=== PATIENT | female | born 1980 | race Caucasian/White ===

== ENCOUNTER → 2017-03-18 | Outpatient (CLI) | payer MEDICARE, OTHER ==
--- NOTE | 2017-03-18 13:50 | MM ---
Reason for exam: screening (asymptomatic). Baseline mammogram. History: Taking hormonal contraceptives for 5 years. Physical Findings: Nurse did not find any significant physical abnormalities on exam. MG 3D Screening Mammo W/Cad Bilateral CC, MLO, and XCCL view(s) were taken. There are scattered fibroglandular densities. Finding: There are a few typically benign round calcifications in both breasts. There is no discrete abnormality. These results were verbally communicated with the patient and result sheet given to the patient on 03/18/17. ASSESSMENT: Benign, BI-RAD 2 RECOMMENDATION: Routine screening mammogram of both breasts at age 38. Back at age 38.
== END | disposition home or self-care (01) ==
LOC: RADMAMWWP 10:35
PROVIDERS: ATTEND Family Medicine
DX: Z12.31 Encounter for screening mammogram for malignant neoplasm of breast (principal)
CPT/HCPCS: 77063; G0202

== ENCOUNTER → 2017-07-12 | Outpatient (CLI) | payer MEDICARE, OTHER ==
--- NOTE | 2017-07-12 12:25 | WWHP ---
[facility] - HISTORY AND PHYSICAL DATE OF SERVICE: 07/12/2017 CHIEF COMPLAINT: The patient is here for her routine gynecologic exam. HPI: This is a 37-year-old G0 with an LMP of approximately 2011. The patient has a long history of hypermenorrhea and states her periods could last as much as 3 to 4 weeks. Her periods have always been very long, since she started having periods. She also has a history of significant mood swings with her periods. Starting about 6 years ago the patient was started on Depo-Provera because of the bad menstrual cycles and menstrual periods. The patient has been amenorrheic since being on the Depo-Provera. She also states her mood swings are much improved. Her last pelvic exam was about 2 years ago. She is without gynecologic complaints. PAST MEDICAL HISTORY: Type 2 diabetes requiring insulin, chronic hypertension, elevated cholesterol, gastroesophageal reflux disease and history of peptic ulcer disease in the past. PAST MEDICATIONS: 1. Depo-Provera 150 mg IM q.3 months. 2. Simvastatin 20 mg daily. 3. Metformin 1000 mg b.i.d. 4. Lisinopril with hydrochlorothiazide 04/21.5 one daily. 5. Januvia 100 mg daily. 6. Omeprazole 20 mg daily. 7. NovoLog 13 units t.i.d. with meals. 8. Lantus 60 units b.i.d. 9. Vitamin D3 five thousand units daily. 10.Vitamin B12 one thousand mg daily. ALLERGIES: ASPIRIN which caused worsening of her ulcer. PAST SURGICAL HISTORY: [place] teeth removed in the past. The patient also had a colonoscopy many years ago. PAST DEVELOPMENT ADMINISTRATOR HISTORY: Menarche was at age 7. The patient has a long history of hypermenorrhea with menses lasting up to 3 to 4 weeks and this resolved with Depo-Provera, which caused her to be amenorrheic and she has been using this since about 2011. She has no history of STDs. SOCIAL HISTORY: She quit smoking in 2014 and denies alcohol and drug use. She is considered disabled. She is single and is not seeing anybody at this time. FAMILY HISTORY: Maternal great aunt had ovarian cancer. Grandfather had heart disease and father had osteoporosis. REVIEW OF SYSTEMS: She states her weight can fluctuate by 15 to 20 pounds. She denies respiratory, cardiac or GI problems. PHYSICAL EXAM: Blood pressure 138/93, height 5 feet 2 inches, weight 294 pounds, BMI 54. Temperature 96.3, pulse 99. This is a well-developed, obese, white female who is alert and oriented x3, in no acute distress. HEENT is within normal limits. NECK: Supple without mass or thyromegaly. CHEST AND LUNGS: Clear to auscultation. HEART: Regular rate and rhythm. Breasts are without mass or discharge. Axillary exam is negative for adenopathy. Back negative for CVA tenderness. Abdomen is morbidly obese, soft, nontender, without palpable masses. PELVIC EXAM: Normal external genitalia. Cervix and vagina appear normal. There is no evidence of prolapse. The uterus is mid position and not grossly enlarged and is nontender. There are no palpable adnexal masses or tenderness. Bimanual examination is limited secondary to her size. Rectal exam is negative for mass or tenderness. EXTREMITIES: Nontender. IMPRESSION: 1. A 37-year-old female with long history of hypermenorrhea, improved with Depo- Provera use. The patient has been amenorrheic since she was started on Depo- Provera in approximately 2011. 2. Unremarkable gynecologic exam but is probably somewhat limited secondary to her size. 3. Obesity. 4. Multiple medical problems. PLAN: 1. Pap smear was performed. 2. Self breast examination was discussed. 3. Regular mammograms will be started at age 38. 4. We have had a long discussion regarding her Depo-Provera use. We discussed how people can lose bone strength while on Depo-Provera. We have discussed other alternatives including the Mirena IUD, endometrial ablation, hysterectomy, and Nexplanon implants. After reviewing these options, the patient would like to continue on with Depo-Provera, but will let me know if she would like to change to one of the other options. 5. Osteoporosis prevention was discussed. 6. Her prescription for Depo-Provera was called in to [facility]. She will use Depo-Provera at 150 mg IM q.3 months. Her last Depo dose was on 05/05/2017. She states these injections are given by the visiting physician that comes to her home on a regular basis. 7. She will return in 1 year. MMODL / IJN: [id number] /
== END ==
LOC: CANPRECLI → WWCWWP 10:38
PROVIDERS: ATTEND Obstetrics & Gynecology
DX: Z53.9 Procedure and treatment not carried out, unspecified reason (principal)

== ENCOUNTER → 2018-06-27 | Outpatient (CLI) | payer MEDICARE, OTHER ==
[2018-06-27 07:56] VITALS: BP 118/76; PULSE 98; TEMP 98.3; BMI 54.8
--- NOTE | 2018-06-27 08:35 | P.HPOB ---
History of Present Illness H&P Date: 06/27/18 Chief Complaint: The patient is here for her routine gynecologic exam and mammogram. This is a 38-year-old G0 with an LMP of approximately 2011. The patient states she is doing well on Depo-Provera which she has been using for her history of hypermenorrhea. She has been amenorrheic since approximately 2011 and this is when she was started on Depo-Provera. Her menstrual periods used to last up to 3 weeks. She is considered options including the Mirena IUD, Nexplanon, endometrial ablation and hysterectomy. The patient would like to continue on Depo-Provera at this time. She is without gynecologic complaints. Review of Systems The patient has gained 6 pounds over the last year. She denies respiratory, cardiac, or G.I. problems. Past Medical History Past Medical History: Asthma, Diabetes Mellitus (Type II diabetes requiring insulin), GERD/Reflux, Hyperlipidemia, Hypertension Additional Past Medical History / Comment(s): Leukocytosis, peptic ulcer disease in the past, and obesity. 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 Long history of hypermenorrhea improved with Depo-Provera. History of Any Multi-Drug Resistant Organisms: None Reported Additional Past Surgical History / Comment(s): [place] teeth removed. Colonoscopy in her 20s. Past Psychological History: Anxiety, Depression, PTSD Smoking Status: Former smoker (Quit in 2014) Past Alcohol Use History: None Reported Past Drug Use History: None Reported Additional History: She is single and is not seen anybody at this time. She is considered disabled. - Past Family History Mother Family Medical History: No Reported History Additional Family Medical History / Comment(s): Maternal great aunt had either ovarian or uterine cancer. Father Additional Family Medical History / Comment(s): Grandfather had heart disease. Father had osteoporosis. Medications and Allergies Home Medications Medication Instructions Recorded Confirmed Type Insulin Glargine,Hum.rec.anlog 60 unit SQ BID 12/17/14 06/27/18 History [Lantus Solostar] Lisinopril-Hctz 10-12.5 mg 1 tab PO DAILY 12/17/14 06/27/18 History [Zestoretic 10-12.5] Omeprazole [PriLOSEC] 20 mg PO AC-BRKFST 12/17/14 06/27/18 History metFORMIN HCL [Glucophage] 1,000 mg PO BID 12/17/14 06/27/18 History Simvastatin [Zocor] 20 mg PO HS #30 tab 04/20/15 06/27/18 Rx Cholecalciferol [Vitamin D3] 5,000 unit PO DAILY 06/21/17 06/27/18 History Cyanocobalamin (Vitamin B-12) 1,000 mcg PO DAILY 06/21/17 06/27/18 History [Vitamin B-12] Insulin Aspart [NovoLOG Flexpen] 15 units SQ AC-BID 06/21/17 06/27/18 History medroxyPROGESTERone [Depo-Provera] 150 mg IM Q84D 06/21/17 06/27/18 History sitaGLIPtin [Januvia] 100 mg PO DAILY 06/21/17 06/27/18 History Allergies Allergy/AdvReac Type Severity Reaction Status Date / Time cephalexin monohydrate Allergy Rash/Hives Verified 06/27/18 07:37 [From Keflex] aspirin AdvReac PATIENT Verified 06/27/18 07:37 HAS ULCER Exam Vital Signs Temp Pulse BP 06/27/18 07:51 98.3 F 98 118/76 Intake and Output 06/26/18 06/27/18 06/27/18 22:59 06:59 14:59 Other: Weight 136.078 kg Height 5'2", weight 300 pounds, BMI 54.9. This is a well-developed well-nourished obese white female who is alert and oriented times 3 in no acute distress. HEENT: Within normal limits. NECK: Supple without mass or thyromegaly. CHEST AND LUNGS: Clear to auscultation. HEART: Regular rate and rhythm. BREASTS: Are without mass or discharge. AXILLARY EXAM: Negative for adenopathy. BACK: Negative for CVA tenderness. ABDOMEN: Soft, obese, nontender, without palpable masses. PELVIC EXAM: Normal external genitalia. Cervix and vagina appear normal. There is no unusual discharge. There is no evidence of prolapse. The uterus is midposition, nongravid size and nontender. There are no palpable adnexal masses or tenderness. Bimanual examination is somewhat limited secondary to her size. RECTAL EXAM: rectovaginal exam is negative for mass or tenderness and is negative for occult blood. EXTREMITIES: Nontender. IMPRESSION: 1. 38-year-old female with a long history of hypermenorrhea improved with Depo- Provera usage. The patient has been amenorrheic since she started Depo-Provera in approximately 2011. 2. Unremarkable gynecologic exam, but this is somewhat limited secondary to her size. 3. Obesity. 4. Multiple medical problems. PLAN: 1. Pap smear was deferred since she had a normal one less than approximately 12 months ago. 2. Self breast awareness was discussed with the patient. 3. Screening mammogram will be done today. I recommend that she have this done yearly. 4. Osteoporosis prevention was discussed. I have stressed the importance of osteoporosis prevention and she understands that prolonged use of Depo-Provera is known to decreased bone strength with time. For this reason I have recommended that she strongly consider changing her treatment options for her history of hypermenorrhea. 5. We had a long discussion regarding treatment options including the Mirena IUD, Nexplanon implant, endometrial ablation and hysterectomy. We have discussed pros and cons with each of these options. She would like to continue on with Depo-Provera at this time. 6. We have discussed her obesity and weight control problems. I have stressed the importance of good nutrition, regular exercise and we also discussed bariatric surgery options. 7. The electronic prescription for Depo-Provera 150 mg IM to 3 months will be sent to [facility]. The visiting physicians comes to her home on a regular basis will continue to administer the injections as she has done in the past. 8. She will return in one year.
--- NOTE | 2018-06-28 10:53 | MM ---
Reason for exam: screening (asymptomatic). Last mammogram was performed 1 year and 3 months ago. History: Taking hormonal contraceptives for 6 years 3 months. Physical Findings: A clinical breast exam by your physician is recommended on an annual basis and results should be correlated with mammographic findings. MG 3D Screening Mammo W/Cad Bilateral CC, MLO, and XCCL view(s) were taken. Prior study comparison: March 18, 2017, bilateral MG 3d screening mammo w/cad. The breast tissue is almost entirely fat. No significant changes when compared with prior studies. ASSESSMENT: Negative, BI-RAD 1 RECOMMENDATION: Routine screening mammogram of both breasts in 1 year.
== END ==
LOC: WWCWWP 07:08
PROVIDERS: ATTEND Obstetrics & Gynecology
DX: Z12.31 Encounter for screening mammogram for malignant neoplasm of breast (principal)
CPT/HCPCS: 77063; 77067

== ENCOUNTER 2018-10-09 10:57 | Inpatient (IN) | payer MEDICARE, OTHER ==
[2018-10-09 12:28] LABS: Glucose,Whole Blood 145 mg/dL (75-99)
[2018-10-09] MEDS ORDERED: VANCOMYCIN IV PER PHARMACY 1 EACH MISC MISCELLANE PRN (12:29)
[2018-10-09 12:33] VITALS: BMI 51.2
[2018-10-09 13:09] LABS: ALT 23 U/L (9-52); AST 17 U/L (14-36); Albumin 4.6 g/dL (3.5-5.0); Alkaline Phosphatase 53 U/L (38-126); Anion Gap 14 mmol/L; Blood Urea Nitrogen 12 mg/dL (7-17); Calcium 10.4 mg/dL (8.4-10.2); Carbon Dioxide 21 mmol/L (22-30); Chloride 103 mmol/L (98-107); Glucose 139 mg/dL (74-99); Sodium 138 mmol/L (137-145); Total Bilirubin 0.6 mg/dL (0.2-1.3); Total Protein 7.8 g/dL (6.3-8.2)
[2018-10-09] MEDS ORDERED: NEOMYCIN-POLYMYXIN-HC (3.5-10,000-10 MG) OTIC DROPS 10 ML BTL BOTH EARS PRN (13:10)
[2018-10-09] MEDS ORDERED: ACETAMINOPHEN TAB 325 MG TAB PO PRN (13:12)
[2018-10-09] MEDS ORDERED: ONDANSETRON 4 MG/2 ML VIAL IVP PRN (13:12)
[2018-10-09 13:18] LABS: Basophils # (A) 0.1 k/uL (0-0.2); Basophils % (A) 0 %; Eosinophils # (A) 0.3 k/uL (0-0.7); Eosinophils % (A) 2 %; HCT 44.3 % (34.0-46.0); HGB 14.3 gm/dL (11.4-16.0); Lymphocytes # (A) 2.7 k/uL (1.0-4.8); Lymphocytes % (A) 21 %; MCHC 32.3 g/dL (31.0-37.0); MCV 83.4 fL (80.0-100.0); Mean Platelet Volume 7.6; Monocytes # (A) 0.6 k/uL (0-1.0); Monocytes % (A) 5 %; Neutrophils # (A) 9.3 k/uL (1.3-7.7); Neutrophils % (A) 71 %; Platelet Count 362 k/uL (150-450); RBC 5.31 m/uL (3.80-5.40); RDW 13.7 % (11.5-15.5); WBC 13.2 k/uL (3.8-10.6)
--- NOTE | 2018-10-09 13:24 | P.HPIM ---
History of Present Illness H&P Date: 10/09/18 Chief Complaint: Right breast abscess This is a 38-year-old female with a known past medical history of diabetes mellitus type 2, hyperlipidemia, hypertension, asthma, morbid obesity and menorrhagia. Patient initially presented to Dr. Hinson's office with complaints of a right breast abscess 7 days. She had been starting on Bactrim for 5 days by visiting home physicians. She had no improvement in the right breast abscess. Therefore, Dr. Hinson directly admitted patient to the hospital for IV antibiotics and infectious disease consults. Under patient's) in the 6 o'clock position there is a firm area about 1-2 cm in size. There is a small pimple- like area. No drainage. There is evidence of cellulitis changes it is warm and tender with palpation covering the underside of the large breast. Ultrasound of the breast as been ordered patient's been started on IV vancomycin and infectious disease has been consulted [place]. She is tachycardic with a heart rate of 125. EKG has been ordered and she's been started on IV fluids. Patient does report also having nausea no actual vomiting. She denies any fever or chills or sweats. Denies any bowel movement changes or urinary symptoms. Denies any chest pain or shortness of breath. Review of Systems Please refer to HPI otherwise unremarkable Past Medical History Past Medical History: Asthma, Diabetes Mellitus (Type II diabetes requiring in sulin), GERD/Reflux, Hyperlipidemia, Hypertension Additional Past Medical History / Comment(s): Leukocytosis, peptic ulcer disease in the past, and obesity. 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 Long history of hypermenorrhea improved with Depo-Provera. History of Any Multi-Drug Resistant Organisms: None Reported Past Surgical History: No Surgical Hx Reported Additional Past Surgical History / Comment(s): [place] teeth removed. Colonoscopy in her 20s. Smoking Status: Former smoker - Past Family History Mother Family Medical History: No Reported History Additional Family Medical History / Comment(s): Maternal great aunt had either ovarian or uterine cancer. Father Additional Family Medical History / Comment(s): Grandfather had heart disease. Father had osteoporosis. Medications and Allergies Home Medications Medication Instructions Recorded Confirmed Type Omeprazole [PriLOSEC] 20 mg PO BASIL-BRKFST 12/17/14 10/09/18 History metFORMIN HCL [Glucophage] 1,000 mg PO BID 12/17/14 10/09/18 History Simvastatin [Zocor] 20 mg PO HS #30 tab 04/20/15 10/09/18 Rx Cholecalciferol [Vitamin D3] 5,000 unit PO DAILY 06/21/17 10/09/18 History Cyanocobalamin (Vitamin B-12) 1,000 mcg PO DAILY 06/21/17 10/09/18 History [Vitamin B-12] sitaGLIPtin [Januvia] 100 mg PO DAILY 06/21/17 10/09/18 History medroxyPROGESTERone [Depo-Provera] 150 mg IM Q84D #1 vial 06/27/18 10/09/18 Rx Insulin Aspart [NovoLOG Flexpen] 15 unit SQ AC-TID 10/09/18 10/09/18 History Insulin Glargine [Lantus] 50 unit SQ BID 10/09/18 10/09/18 History Insulin Glargine,Hum.rec.anlog 50 unit SQ BID 10/09/18 10/09/18 History [Lantus Solostar] Lisinopril-Hctz 20-12.5 mg 1 tab PO DAILY 10/09/18 10/09/18 History [Zestoretic 20-12.5] Tmdlmzbo-Krvubzjdo-Wf Otic 3 - 5 drop BOTH EARS DAILY PRN 10/09/18 10/09/18 History [Cortisporin Otic Soln] Sulfamethox-Tmp 800-160Mg [Bactrim 1 tab PO BID 10/09/18 10/09/18 History DS 800-160 mg] Allergies Allergy/AdvReac Type Severity Reaction Status Date / Time cephalexin monohydrate Allergy Rash/Hives Verified 10/09/18 12:57 [From Keflex] aspirin AdvReac PATIENT Verified 10/09/18 12:57 HAS ULCER Physical Exam Vitals: Vital Signs Temp Pulse Resp BP Pulse Ox 10/09/18 12:23 97.6 F 125 H 20 116/80 94 L Intake and Output 10/08/18 10/09/18 10/09/18 22:59 06:59 14:59 Other: Weight 131.3 kg Head normocephalic Neck supple Lungs clear to auscultation bilaterally no wheezing or crackles Heart regular rate and rhythm S1-S2, no rub or gallop Abdomen is soft nontender nondistended positive bowel sounds no hepatosplenomegaly Extremities no edema Neuro alert and orientated to 3 Breast: Right breast 6 o'clock position about 01-2 cm abscess with palpable point. No drainage. Tender with palpation. Under side of breast is red and warm. Results CBC & Chem 7: 10/09/18 12:36 Labs: Abnormal Lab Results - Last 24 Hours (Table) 10/09/18 10/09/18 Range/Units 12:24 12:36 Carbon Dioxide 21 L (22-30) mmol/L Glucose 139 H (74-99) mg/dL POC Glucose (mg/dL) 145 H (75-99) mg/dL Calcium 10.4 H (8.4-10.2) mg/dL Assessment and Plan Assessment: 1. Right breast abscess: Failed outpatient antibiotics with Bactrim. Start IV vancomycin. Consult infectious disease. Check right breast ultrasound. Check blood culture. Check CBC. 2. Tachycardia: Possibly related to infection. Check EKG. Start normal saline at 100 mL an hour. Check lactic acid. Check CBC 3. Diabetes mellitus type 2: Resume patient's home insulin Lantus and scheduled NovoLog with meals. Add sliding scale coverage. Check hemoglobin A1c 4. Morbid obesity BMI 51.3 kg 5. Essential hypertension: Resume patient's blood pressure medication 6. Hyperlipidemia resume Zocor 7. History of mild intermittent asthma. Stable GI prophylaxis Protonix and DVT prophylaxis Lovenox Time with Patient: Greater than 30 (Greater than 50% of the total time spent in counseling and coordination of care.I performed an examination of the patient and discussed their management with the physician Drencher. I have reviewed the Physician Drencher's notes and agree with the documented findings and plan of care)
[2018-10-09] MEDS ORDERED: VANCOMYCIN 2,500 MG in SODIUM CHLORIDE 0.9% 500 ML 500 ML IVPB ONE (13:30)
--- NOTE | 2018-10-09 14:13 | USB ---
Reason for exam: clinical finding. History: Taking hormonal contraceptives for 6 years 3 months. US Breast Limited RT Right limited breast ultrasound including focal area of concern, retroareolar and axilla demonstrates a 3.7 x 1.2 x 5.4cm lobular, irregular, mixed, hypoechoic lesion at 6 o'clock, increased through transmission, thin walled. Findings favor thin walled abscess. These results were verbally communicated with the patient and result sheet given to the patient on 10/09/18. ASSESSMENT: Probably benign, BI-RAD 3 RECOMMENDATION: Aspiration of the right breast. (FNA can be performed if desired for fluid analysis)
[2018-10-09] MEDS: SODIUM CHLORIDE 0.9% 1,000 ML IV SCH ×2 (14:21→20:55)
[2018-10-09] MEDS: PANTOPRAZOLE 40 MG TABLET PO SCH (14:29)
[2018-10-09] MEDS ORDERED: SODIUM CHLORIDE 0.9% 500 ML 500 ML IV ONE (16:13)
[2018-10-09] MEDS: traMADol 50 MG TAB PO PRN (17:30)
[2018-10-09 17:53] LABS: Glucose,Whole Blood 174 mg/dL (75-99)
[2018-10-09] MEDS: INSULIN ASPART (NovoLOG) 100 UNIT/ML VIAL SQ SCH ×3 (18:36→20:54)
[2018-10-09] MEDS: ATORVASTATIN 10 MG TAB PO SCH (20:48)
[2018-10-09] MEDS: INSULIN DETEMIR (LEVEMIR) 100 UNIT/ML SYR SQ SCH (20:54)
[2018-10-09 21:06] LABS: Hemoglobin A1C 7.4 % (4.0-6.0)
[2018-10-09 23:13] LABS: Glucose,Whole Blood 140 mg/dL (75-99)
--- NOTE | 2018-10-09 23:16 | P.CONS ---
History of Present Illness - Reason for Consult Consult date: 10/09/18 - Chief Complaint Pain right breast - History of Present Illness 38-year-old female who has a history of diabetes mellitus type 2, last hemoglobin A1c greater than 8, obesity and menorrhagia. Apparently the patient a week ago started developed some pain and discomfort to her inferior aspect of her right breast. She does have a history of prior yeast infections but this was different. It was more rounded swollen tender and had some erythema. She was seen and apparently placed on Bactrim. Despite this she did not have any significant improvement to the area. It became worse in that it was more swollen, more erythematous and more tender. Her blood sugars increased and consequently she was brought into hospital. With evidence of the abscess at that site the infectious diseases consultation was requested. Review of Systems 38-year-old woman with obesity HEENT:Denies headache or acute visual change. Denies sinus or mouth discomforts. Denies neck stiffness or pain. Denies significant oral cavity pain. Denies difficulty on swallowing. Lungs: Denies significant shortness of breath, cough, sputum production, or hemoptysis. Cardiovascular: Denies significant shortness of breath, chest pain, chest wall pain, orthopnea, dyspnea on exertion, syncope Gastrointestinal:Denies nausea, vomiting, diarrhea, constipation, hematemesis, melena, hematochezia. No no significant change of bowel habit noticed. Musculoskeletal: denies significant myalgias or arthralgias. No new joint swelling. Denies new back pain. Skin: Pain inferior aspect right breast Neuro: Denies headache or visual change. Denies any new onset weakness or difficulty with ambulation. Denies falls or seizures. Psychiatric:Denies anxiety or depression. Endocrine: Poor energy level obesity and weight gain Past Medical History Past Medical History: Asthma, Diabetes Mellitus (Type II diabetes requiring insulin), GERD/Reflux, Hyperlipidemia, Hypertension Additional Past Medical History / Comment(s): Leukocytosis, peptic ulcer disease in the past, and obesity. PAST FACULTY DEAN HISTORY: She has no history of STDs. Long history of hypermenorrhea improved with Depo-Provera. History of Any Multi-Drug Resistant Organisms: None Reported Past Surgical History: No Surgical Hx Reported Additional Past Surgical History / Comment(s): [place] teeth removed. Colonoscopy in her 20s. Additional Psychological History / Comment(s): Single. Lives independently. No animal exposures. Does not work outside of the home Smoking Status: Former smoker - Past Family History Mother Family Medical History: No Reported History Additional Family Medical History / Comment(s): Maternal great aunt had either ovarian or uterine cancer. Father Additional Family Medical History / Comment(s): Grandfather had heart disease. Father had osteoporosis. Medications and Allergies Home Medications and Allergies Comment(s): Current Medications Acetaminophen (Tylenol Tab) 650 mg PO Q6HR PRN PRN Reason: Fever and/ or Pain Atorvastatin Calcium (Lipitor) 10 mg PO HS [facility] Last Admin: 10/09/18 20:48 Dose: 10 mg Documented by: Cholecalciferol (Vitamin D3) 5,000 unit PO 1200 [facility] Cyanocobalamin (Vitamin B-12) 1,000 mcg PO 1200 [facility] Enoxaparin Sodium (Lovenox) 40 mg SQ DAILY [facility] Lisinopril/HCTZ (Zestoretic 20-12.5) 1 each PO DAILY [facility] Sodium Chloride (Saline 0.9%) 1,000 mls @ 100 mls/hr IV .Q10H [facility] Last Admin: 10/09/18 20:55 Dose: 100 mls/hr Documented by: Vancomycin HCl 2,250 mg/ (Sodium Chloride) 500 mls @ 167 mls/hr IVPB Q12H [facility] Insulin Aspart (Novolog) 0 unit SQ ACHS [facility]; Protocol Last Admin: 10/09/18 20:54 Dose: 1 unit Documented by: Insulin Aspart (Novolog) 15 unit SQ AC-TID [facility] Last Admin: 10/09/18 18:37 Dose: 15 unit Documented by: Insulin Detemir (Levemir) 50 unit SQ BID [facility] Last Admin: 10/09/18 20:54 Dose: 50 unit Documented by: Linagliptin (Tradjenta) 5 mg PO DAILY [facility] Neomycin/Polymyxin/Hydrocortisone (Cortisporin Otic Soln) 5 drops BOTH EARS DAILY PRN PRN Reason: PSORIASIS FLARE Ondansetron HCl (Zofran) 4 mg IVP Q6HR PRN PRN Reason: Vomiting Pantoprazole Sodium (Protonix) 40 mg PO AC-BRKFST [facility] Last Admin: 10/09/18 14:29 Dose: 40 mg Documented by: Tramadol HCl (Ultram) 100 mg PO TID PRN PRN Reason: Pain Last Admin: 10/09/18 17:30 Dose: 100 mg Documented by: Home Medications Medication Instructions Recorded Confirmed Type Omeprazole [PriLOSEC] 20 mg PO AC-BRKFST 12/17/14 10/09/18 History metFORMIN HCL [Glucophage] 1,000 mg PO BID 12/17/14 10/09/18 History Simvastatin [Zocor] 20 mg PO HS #30 tab 04/20/15 10/09/18 Rx Cholecalciferol [Vitamin D3] 5,000 unit PO DAILY 06/21/17 10/09/18 History Cyanocobalamin (Vitamin B-12) 1,000 mcg PO DAILY 06/21/17 10/09/18 History [Vitamin B-12] sitaGLIPtin [Januvia] 100 mg PO DAILY 06/21/17 10/09/18 History medroxyPROGESTERone [Depo-Provera] 150 mg IM Q84D #1 vial 06/27/18 10/09/18 Rx Insulin Aspart [NovoLOG Flexpen] 15 unit SQ AC-TID 10/09/18 10/09/18 History Insulin Glargine [Lantus] 50 unit SQ BID 10/09/18 10/09/18 History Insulin Glargine,Hum.rec.anlog 50 unit SQ BID 10/09/18 10/09/18 History [Lantus Solostar] Lisinopril-Hctz 20-12.5 mg 1 tab PO DAILY 10/09/18 10/09/18 History [Zestoretic 20-12.5] Ygasdixm-Otgofxmdw-La Otic 3 - 5 drop BOTH EARS DAILY PRN 10/09/18 10/09/18 History [Cortisporin Otic Soln] Sulfamethox-Tmp 800-160Mg [Bactrim 1 tab PO BID 10/09/18 10/09/18 History DS 800-160 mg] Allergies Allergy/AdvReac Type Severity Reaction Status Date / Time cephalexin monohydrate Allergy Rash/Hives Verified 10/09/18 12:57 [From Keflex] aspirin AdvReac PATIENT Verified 10/09/18 12:57 HAS ULCER Physical Exam Vitals: Vital Signs Temp Pulse Resp BP BP Pulse Ox 10/09/18 21:55 97.1 F L 98 20 152/93 96 10/09/18 15:00 97.8 F 99 20 130/66 98 10/09/18 12:23 97.6 F 125 H 20 116/80 94 L Intake and Output 10/09/18 10/09/18 10/09/18 06:59 14:59 22:59 Other: # Voids 2 1 Weight 131.3 kg 38-year-old female with obesity seems to be comfortable at this time HEENT: Anicteric conjunctiva are pink and moist nasal mucosa grossly intact without significant lesions, there is no thrush. Neck: The neck is supple without significant lymphadenopathy or thyromegaly. Lungs: Good bilateral air entry without significant crackles or wheezing. There is no significant bronchial sounds. There is no egophony or dullness. Heart: Regular rate and rhythm with an audible S1-S2, no S3 no S4. There is no significant murmur click or rub, PMI was nondisplaced. Abdomen: Obese, Positive bowel sounds soft and nontender without palpable masses or organomegaly. There was no guarding or rebound. Extremities: The upper extremities have excellent pulses they are symmetric, no significant petechiae or telangiectasia. No splinter hemorrhages were noted. The lower extremities are free from significant edema. The peripheral pulses were 2+ and symmetric. Neuro: Awake alert oriented to person place and time. There are no acute new gross focal sensory motor deficits. With the nurse present the right breast is evaluated. In the inferior aspect of the breast there is these 3 cm area of erythema it is indurated and very tender. The pustule that is present. A culturette is utilized and foul-smelling purulent material is able to be cultured. With some manipulation drainage occurs which is tender. There was no significant axillary lymphadenopathy, no other lymph nodes are noted Results CBC & Chem 7: 10/09/18 12:36 10/09/18 12:36 Labs: Abnormal Lab Results - Last 24 Hours (Table) 10/09/18 10/09/18 10/09/18 Range/Units 12:24 12:36 12:36 WBC 13.2 H (3.8-10.6) k/uL Neutrophils # 9.3 H (1.3-7.7) k/uL Carbon Dioxide 21 L (22-30) mmol/L Glucose 139 H (74-99) mg/dL POC Glucose (mg/dL) 145 H (75-99) mg/dL Hemoglobin A1c (4.0-6.0) % Plasma Lactic Acid Carlos (0.7-2.0) mmol/L Calcium 10.4 H (8.4-10.2) mg/dL 10/09/18 10/09/18 10/09/18 Range/Units 12:36 14:44 17:32 WBC (3.8-10.6) k/uL Neutrophils # (1.3-7.7) k/uL Carbon Dioxide (22-30) mmol/L Glucose (74-99) mg/dL POC Glucose (mg/dL) 174 H (75-99) mg/dL Hemoglobin A1c 7.4 H (4.0-6.0) % Plasma Lactic Acid Carlos 2.7 H* (0.7-2.0) mmol/L Calcium (8.4-10.2) mg/dL Laboratory Results WBC 13.2 k/uL (3.8-10.6) H 10/09/18 12:36 RBC 5.31 m/uL (3.80-5.40) 10/09/18 12:36 Hgb 14.3 gm/dL (11.4-16.0) 10/09/18 12:36 Hct 44.3 % (34.0-46.0) 10/09/18 12:36 MCV 83.4 fL (80.0-100.0) 10/09/18 12:36 MCH 27.0 pg (25.0-35.0) 10/09/18 12:36 MCHC 32.3 g/dL (31.0-37.0) 10/09/18 12:36 RDW 13.7 % (11.5-15.5) 10/09/18 12:36 Plt Count 362 k/uL (150-450) 10/09/18 12:36 Neutrophils % 71 % 10/09/18 12:36 Lymphocytes % 21 % 10/09/18 12:36 Monocytes % 5 % 10/09/18 12:36 Eosinophils % 2 % 10/09/18 12:36 Basophils % 0 % 10/09/18 12:36 Neutrophils # 9.3 k/uL (1.3-7.7) H 10/09/18 12:36 Lymphocytes # 2.7 k/uL (1.0-4.8) 10/09/18 12:36 Monocytes # 0.6 k/uL (0-1.0) 10/09/18 12:36 Eosinophils # 0.3 k/uL (0-0.7) 10/09/18 12:36 Basophils # 0.1 k/uL (0-0.2) 10/09/18 12:36 Sodium 138 mmol/L (137-145) 10/09/18 12:36 Potassium 5.0 mmol/L (3.5-5.1) 10/09/18 12:36 Chloride 103 mmol/L (98-107) 10/09/18 12:36 Carbon Dioxide 21 mmol/L (22-30) L 10/09/18 12:36 Anion Gap 14 mmol/L 10/09/18 12:36 BUN 12 mg/dL (7-17) 10/09/18 12:36 Creatinine 0.61 mg/dL (0.52-1.04) 10/09/18 12:36 Est GFR (CKD-EPI)AfAm >90 (>60 ml/min/1.73 sqM) 10/09/18 12:36 Est GFR (CKD-EPI)NonAf >90 (>60 ml/min/1.73 sqM) 10/09/18 12:36 Glucose 139 mg/dL (74-99) H 10/09/18 12:36 POC Glucose (mg/dL) 174 mg/dL (75-99) H 10/09/18 17:32 POC Glu Trim Stencil Maker ID Renetta Lucas 10/09/18 17:[address] Glu mg/dL 166 10/09/18 12:36 Hemoglobin A1c 7.4 % (4.0-6.0) H 10/09/18 12:36 Lactic Ac Sepsis Rflx Y 10/09/18 15:49 Plasma Lactic Acid Carlos 1.8 mmol/L (0.7-2.0) 10/09/18 19:53 Calcium 10.4 mg/dL (8.4-10.2) H 10/09/18 12:36 Total Bilirubin 0.6 mg/dL (0.2-1.3) 10/09/18 12:36 AST 17 U/L (14-36) 10/09/18 12:36 ALT 23 U/L (9-52) 10/09/18 12:36 Alkaline Phosphatase 53 U/L (38-126) 10/09/18 12:36 Total Protein 7.8 g/dL (6.3-8.2) 10/09/18 12:36 Albumin 4.6 g/dL (3.5-5.0) 10/09/18 12:36 Assessment and Plan (1) Abscess of right breast Narrative/Plan: 38-year-old female presents to Hospital with a history of pain and swelling to the right breast. Despite a 5 day course of antibiotic therapy with Bactrim and did not improved in counseling was brought into hospital for further intervention. Ultrasound reveals evidence of a fluid collection. With the nurse present a culture is obtained of the somewhat foul drainage that is being noted at that site. Antibiotic therapy with vancomycin has been started. We'll add and Unasyn for now given the somewhat putrid nature of the drainage. Does not appear to have a secondary yeast infection at this time. Improvement of her diabetes care will be very important in helping the treatment and preventing further skin lesions. Skin lesions are common in patients with uncontrolled diabetes. Tetanus vaccine will be updated Will provide multivitamin Current Visit: Yes Status: Acute Code(s): N61.1 - ABSCESS OF THE BREAST AND NIPPLE SNOMED Code(s): 90062026 (2) Leukocytosis Current Visit: Yes Status: Acute Code(s): D72.829 - ELEVATED WHITE BLOOD CELL COUNT, UNSPECIFIED SNOMED Code(s): 301428922 (3) Diabetes mellitus type 2, uncontrolled Current Visit: Yes Status: Acute Code(s): E11.65 - TYPE 2 DIABETES MELLITUS WITH HYPERGLYCEMIA SNOMED Code(s): 681761765
[2018-10-10] MEDS: AMPICILLIN-SULBACTAM 3 GM in SODIUM CHLORIDE 0.9% 100 ML IVPB SCH ×4 (00:29→17:16)
[2018-10-10] MEDS ORDERED: VANCOMYCIN 2,250 MG in SODIUM CHLORIDE 0.9% 500 ML 500 ML IVPB SCH (02:00)
[2018-10-10 06:59] LABS: Glucose,Whole Blood 133 mg/dL (75-99)
[2018-10-10] MEDS ORDERED: DIPH,PERTUS(ACELL)TETVAC-LF 0.5 ML VIAL IM ONE (07:00)
[2018-10-10] MEDS: MULTIVITAMINS, THERA 1 EACH TAB PO SCH (07:24)
[2018-10-10] MEDS: CYANOCOBALAMIN 500 MCG TAB PO SCH (07:24)
[2018-10-10] MEDS: PANTOPRAZOLE 40 MG TABLET PO SCH (07:24)
[2018-10-10] MEDS: LINAGLIPTIN 5 MG TABLET PO SCH (07:24)
[2018-10-10] MEDS: CHOLECALCIFEROL 1,000 UNIT TAB PO SCH (07:24)
[2018-10-10] MEDS: ENOXAPARIN 40 MG/0.4 ML SYRINGE SQ SCH (07:25)
[2018-10-10] MEDS: SODIUM CHLORIDE 0.9% 1,000 ML IV SCH ×2 (07:26→21:26)
[2018-10-10] MEDS: INSULIN ASPART (NovoLOG) 100 UNIT/ML VIAL SQ SCH ×7 (07:26→21:29)
[2018-10-10] MEDS: LISINOPRIL-HCTZ 20-12.5 MG 1 EACH TAB PO SCH (07:30)
[2018-10-10] MEDS ORDERED: NON-FORMULARY DRUG (Omeprazole [Prilosec] 20 MG) PO SCH (07:30)
[2018-10-10] MEDS: INSULIN DETEMIR (LEVEMIR) 100 UNIT/ML SYR SQ SCH (08:25)
[2018-10-10 10:01] LABS: Basophils # (A) 0.1 k/uL (0-0.2); Basophils % (A) 1 %; Eosinophils # (A) 0.3 k/uL (0-0.7); Eosinophils % (A) 3 %; HCT 39.1 % (34.0-46.0); HGB 12.8 gm/dL (11.4-16.0); Lymphocytes # (A) 2.5 k/uL (1.0-4.8); Lymphocytes % (A) 24 %; MCH 26.8 pg (25.0-35.0); MCHC 32.7 g/dL (31.0-37.0); MCV 82.2 fL (80.0-100.0); Mean Platelet Volume 7.5; Monocytes # (A) 0.5 k/uL (0-1.0); Monocytes % (A) 5 %; Neutrophils # (A) 6.9 k/uL (1.3-7.7); Neutrophils % (A) 66 %; Platelet Count 327 k/uL (150-450); RBC 4.75 m/uL (3.80-5.40); RDW 14.1 % (11.5-15.5); WBC 10.5 k/uL (3.8-10.6)
[2018-10-10 10:34] LABS: ALT 27 U/L (9-52); AST 17 U/L (14-36); Alkaline Phosphatase 41 U/L (38-126); Anion Gap 9 mmol/L; Blood Urea Nitrogen 11 mg/dL (7-17); Calcium 9.4 mg/dL (8.4-10.2); Carbon Dioxide 25 mmol/L (22-30); Chloride 104 mmol/L (98-107); Glucose 173 mg/dL (74-99); Potassium 4.4 mmol/L (3.5-5.1); Sodium 138 mmol/L (137-145); Total Bilirubin 0.5 mg/dL (0.2-1.3)
[2018-10-10 12:27] LABS: Glucose,Whole Blood 107 mg/dL (75-99)
--- NOTE | 2018-10-10 12:36 | P.PN ---
Subjective Progress Note Date: 10/10/18 This is a 38-year-old female with a known past medical history of diabetes mellitus type 2, hyperlipidemia, hypertension, asthma, morbid obesity and menorrhagia. Patient initially presented to Dr. Hinson's office with complaints of a right breast abscess 7 days. She had been starting on Bactrim for 5 days by visiting home physicians. She had no improvement in the right breast abscess. Therefore, Dr. Hinson directly admitted patient to the hospital for IV antibiotics and infectious disease consults. Under patient's breast in the 6 o'clock position there is a firm area about 1-2 cm in size. There is a small pimple-like area. No drainage. There is evidence of cellulitis changes it is warm and tender with palpation covering the underside of the large breast. Ultrasound of the breast as been ordered patient's been started on IV vancomycin and infectious disease has been consulted [place]. She is tachycardic with a heart rate of 125. EKG has been ordered and she's been started on IV fluids. Patient does report also having nausea no actual vomiting. She denies any fever or chills or sweats. Denies any bowel movement changes or urinary symptoms. Denies any chest pain or shortness of breath. 10/10/2018 patient seen by infectious disease. Unasyn was added. Infectious disease was able to drain some of the abscess. Cultures were obtained. White count has normalized down from 13.2-10.5. Lactic normalized at 1.8. Patient's pain is controlled. Denies any nausea or vomiting. No bowel movement yesterday. She did receive a tetanus shot Objective - Vital Signs Vital signs: Vital Signs Temp 98.7 F 10/10/18 05:40 Pulse 98 10/10/18 05:40 Resp 20 10/10/18 05:40 BP 110/72 10/10/18 05:40 Pulse Ox 96 10/10/18 05:40 Intake & Output 10/09/18 10/10/18 10/10/18 18:59 06:59 18:59 Intake Total 240 Balance 240 Weight 131.3 kg Intake: Oral 240 Other: # Voids 2 1 - Exam Head normocephalic Neck supple Lungs clear to auscultation bilaterally no wheezing or crackles Heart regular rate and rhythm S1-S2, no rub or gallop Abdomen is soft nontender nondistended positive bowel sounds no hepatosplenomegaly Extremities no edema Neuro alert and orientated to 3 Breast: Right breast 6 o'clock position about 01-2 cm abscess with palpable point that looks like in a large pimple which is now draining pus material. Tender with palpation. Under side of breast is red and warm. - Labs CBC & Chem 7: 10/10/18 09:46 10/10/18 09:46 Labs: Abnormal Lab Results - Last 24 Hours (Table) 10/09/18 10/09/18 10/09/18 Range/Units 12:36 12:36 12:36 WBC 13.2 H (3.8-10.6) k/uL Neutrophils # 9.3 H (1.3-7.7) k/uL Carbon Dioxide 21 L (22-30) mmol/L Glucose 139 H (74-99) mg/dL POC Glucose (mg/dL) (75-99) mg/dL Hemoglobin A1c 7.4 H (4.0-6.0) % Plasma Lactic Acid Carlos (0.7-2.0) mmol/L Calcium 10.4 H (8.4-10.2) mg/dL 10/09/18 10/09/18 10/09/18 Range/Units 14:44 17:32 20:22 WBC (3.8-10.6) k/uL Neutrophils # (1.3-7.7) k/uL Carbon Dioxide (22-30) mmol/L Glucose (74-99) mg/dL POC Glucose (mg/dL) 174 H 140 H (75-99) mg/dL Hemoglobin A1c (4.0-6.0) % Plasma Lactic Acid Carlos 2.7 H* (0.7-2.0) mmol/L Calcium (8.4-10.2) mg/dL 10/10/18 10/10/18 10/10/18 Range/Units 06:57 09:46 12:25 WBC (3.8-10.6) k/uL Neutrophils # (1.3-7.7) k/uL Carbon Dioxide (22-30) mmol/L Glucose 173 H (74-99) mg/dL POC Glucose (mg/dL) 133 H 107 H (75-99) mg/dL Hemoglobin A1c (4.0-6.0) % Plasma Lactic Acid Carlos (0.7-2.0) mmol/L Calcium (8.4-10.2) mg/dL Microbiology - Last 24 Hours (Table) 10/09/18 17:30 Gram Stain - Preliminary Breast - Right Wound Culture - Preliminary 10/09/18 17:30 Anaerobic Culture - Preliminary Breast - Right Assessment and Plan Assessment: 1. Right breast abscess: Failed outpatient antibiotics with Bactrim. Seen by infectious disease. Antibiotics were adjusted. Currently on Unasyn and vancomycin. White count and lactic acid have normalized. 2. Sepsis present on admission secondary to right breast abscess. Patient was tachycardic with elevated white count and lactic acid 3. Diabetes mellitus type 2: Resume patient's home insulin Lantus and scheduled NovoLog with meals. Add sliding scale coverage. Resume patient's Tradjenta and metformin. A1c 7.4 4. Morbid obesity BMI 51.3 kg 5. Essential hypertension: Resume patient's blood pressure medication 6. Hyperlipidemia resume Zocor 7. History of mild intermittent asthma. Stable GI prophylaxis Protonix and DVT prophylaxis Lovenox I performed an examination of the patient and discussed their management with the physician Wireless Watcher. I have reviewed the Physician Wireless Watcher's notes and agree with the documented findings and plan of care
[2018-10-10] MEDS: VANCOMYCIN 2,000 MG in SODIUM CHLORIDE 0.9% 500 ML 500 ML IVPB SCH ×2 (14:06→21:30)
[2018-10-10 17:07] LABS: Glucose,Whole Blood 158 mg/dL (75-99)
[2018-10-10] MEDS: metFORMIN 500 MG TAB PO SCH (17:16)
[2018-10-10] MEDS: traMADol 50 MG TAB PO PRN (19:17)
[2018-10-10 20:56] LABS: Glucose,Whole Blood 97 mg/dL (75-99)
[2018-10-10] MEDS: ATORVASTATIN 10 MG TAB PO SCH (21:26)
[2018-10-11 00:09] LABS: Glucose,Whole Blood 114 mg/dL (75-99)
[2018-10-11] MEDS: INSULIN DETEMIR (LEVEMIR) 100 UNIT/ML SYR SQ SCH ×3 (00:47→22:43)
[2018-10-11] MEDS: AMPICILLIN-SULBACTAM 3 GM in SODIUM CHLORIDE 0.9% 100 ML IVPB SCH ×4 (00:47→17:21)
[2018-10-11] MEDS: SODIUM CHLORIDE 0.9% 1,000 ML IV SCH ×2 (05:45→14:08)
[2018-10-11] MEDS: VANCOMYCIN 2,000 MG in SODIUM CHLORIDE 0.9% 500 ML 500 ML IVPB SCH ×3 (06:26→22:42)
[2018-10-11 07:05] LABS: Glucose,Whole Blood 129 mg/dL (75-99)
[2018-10-11] MEDS: INSULIN ASPART (NovoLOG) 100 UNIT/ML VIAL SQ SCH ×7 (07:33→22:50)
[2018-10-11] MEDS: metFORMIN 500 MG TAB PO SCH ×2 (07:44→17:22)
[2018-10-11] MEDS: PANTOPRAZOLE 40 MG TABLET PO SCH (07:45)
[2018-10-11] MEDS: LINAGLIPTIN 5 MG TABLET PO SCH (07:45)
[2018-10-11] MEDS: ENOXAPARIN 40 MG/0.4 ML SYRINGE SQ SCH (07:45)
[2018-10-11] MEDS: LISINOPRIL-HCTZ 20-12.5 MG 1 EACH TAB PO SCH (07:46)
--- NOTE | 2018-10-11 11:06 | P.PN ---
Subjective Progress Note Date: 10/11/18 This is a 38-year-old female with a known past medical history of diabetes mellitus type 2, hyperlipidemia, hypertension, asthma, morbid obesity and menorrhagia. Patient initially presented to Dr. Hinson's office with complaints of a right breast abscess 7 days. She had been starting on Bactrim for 5 days by visiting home physicians. She had no improvement in the right breast abscess. Therefore, Dr. Hinson directly admitted patient to the hospital for IV antibiotics and infectious disease consults. Under patient's breast in the 6 o'clock position there is a firm area about 1-2 cm in size. There is a small pimple-like area. No drainage. There is evidence of cellulitis changes it is warm and tender with palpation covering the underside of the large breast. Ultrasound of the breast as been ordered patient's been started on IV vancomycin and infectious disease has been consulted [place]. She is tachycardic with a heart rate of 125. EKG has been ordered and she's been started on IV fluids. Patient does report also having nausea no actual vomiting. She denies any fever or chills or sweats. Denies any bowel movement changes or urinary symptoms. Denies any chest pain or shortness of breath. 10/10/2018 patient seen by infectious disease. Unasyn was added. Infectious disease was able to drain some of the abscess. Cultures were obtained. White count has normalized down from 13.2-10.5. Lactic normalized at 1.8. Patient's pain is controlled. Denies any nausea or vomiting. No bowel movement yesterday. She did receive a tetanus shot On 10/11/2018 patient is alert and oriented 3. Patient is currently on Unasyn and sacral for IV antibiotics. Patient denies chest pain or shortness breath. Patient denies nausea vomiting or diarrhea. Patient denies any urinary burning or frequency. Awaiting infectious disease recommendations for possible drainage and possible IV antibiotics upon discharge Objective - Vital Signs Vital signs: Vital Signs Temp 97.1 F L 10/11/18 05:00 Pulse 92 10/11/18 05:00 Resp 18 10/11/18 05:00 BP 128/81 10/11/18 05:00 Pulse Ox 99 10/11/18 05:00 Intake & Output 10/10/18 10/11/18 10/11/18 18:59 06:59 18:59 Intake Total 600 Balance 600 Intake: Oral 600 Other: # Voids 1 2 - Exam Head normocephalic Neck supple Lungs clear to auscultation bilaterally no wheezing or crackles Heart regular rate and rhythm S1-S2, no rub or gallop Abdomen is soft nontender nondistended positive bowel sounds no hepatosplenomegaly Extremities no edema Neuro alert and orientated to 3 Breast: Right breast 6 o'clock position about 01-2 cm abscess with palpable point that looks like in a large pimple which is now draining pus material. Tender with palpation. Under side of breast is red and warm. - Labs CBC & Chem 7: 10/10/18 09:46 10/10/18 09:46 Labs: Abnormal Lab Results - Last 24 Hours (Table) 10/10/18 10/10/18 10/11/18 Range/Units 12:25 17:05 00:08 POC Glucose (mg/dL) 107 H 158 H 114 H (75-99) mg/dL 10/11/18 Range/Units 07:02 POC Glucose (mg/dL) 129 H (75-99) mg/dL Microbiology - Last 24 Hours (Table) 10/09/18 14:44 Blood Culture - Preliminary Blood No Growth after 24 hours 10/09/18 14:45 Blood Culture - Preliminary Blood No Growth after 24 hours 10/09/18 17:30 Gram Stain - Preliminary Breast - Right Wound Culture - Preliminary Assessment and Plan Assessment: 1. Right breast abscess: Failed outpatient antibiotics with Bactrim. Seen by infectious disease. Antibiotics were adjusted. Currently on Unasyn and vancomycin. White count and lactic acid have normalized. 2. Sepsis present on admission secondary to right breast abscess. Patient was tachycardic with elevated white count and lactic acid 3. Diabetes mellitus type 2: Resume patient's home insulin Lantus and scheduled NovoLog with meals. Add sliding scale coverage. Resume patient's Tradjenta and metformin. A1c 7.4 4. Morbid obesity BMI 51.3 kg 5. Essential hypertension: Resume patient's blood pressure medication 6. Hyperlipidemia resume Zocor 7. History of mild intermittent asthma. Stable GI prophylaxis Protonix and DVT prophylaxis Lovenox I performed an examination of the patient and discussed their management with the Nurse Practitioner. I have reviewed the Nurse Practitioner's notes and agree with the documented findings and plan of care
[2018-10-11 12:27] LABS: Glucose,Whole Blood 104 mg/dL (75-99)
[2018-10-11] MEDS: CHOLECALCIFEROL 1,000 UNIT TAB PO SCH (12:42)
[2018-10-11] MEDS: MULTIVITAMINS, THERA 1 EACH TAB PO SCH (12:43)
[2018-10-11] MEDS: CYANOCOBALAMIN 500 MCG TAB PO SCH (12:43)
[2018-10-11] MEDS ORDERED: VANCOMYCIN TROUGH DUE 1 EACH MISC MISCELLANE ONE (13:00)
[2018-10-11 14:30] LABS: Basophils # (A) 0.1 k/uL (0-0.2); Basophils % (A) 0 %; Eosinophils # (A) 0.3 k/uL (0-0.7); Eosinophils % (A) 3 %; HCT 36.8 % (34.0-46.0); HGB 12.2 gm/dL (11.4-16.0); Lymphocytes # (A) 2.5 k/uL (1.0-4.8); Lymphocytes % (A) 22 %; MCH 27.4 pg (25.0-35.0); MCHC 33.1 g/dL (31.0-37.0); MCV 82.6 fL (80.0-100.0); Mean Platelet Volume 7.6; Monocytes # (A) 0.5 k/uL (0-1.0); Monocytes % (A) 5 %; Neutrophils # (A) 7.7 k/uL (1.3-7.7); Neutrophils % (A) 68 %; Platelet Count 312 k/uL (150-450); RBC 4.46 m/uL (3.80-5.40); RDW 13.8 % (11.5-15.5); WBC 11.3 k/uL (3.8-10.6)
[2018-10-11 14:34] LABS: ALT 26 U/L (9-52); AST 14 U/L (14-36); Albumin 3.8 g/dL (3.5-5.0); Alkaline Phosphatase 51 U/L (38-126); Anion Gap 11 mmol/L; Blood Urea Nitrogen 9 mg/dL (7-17); Calcium 9.7 mg/dL (8.4-10.2); Carbon Dioxide 25 mmol/L (22-30); Chloride 104 mmol/L (98-107); Glucose 156 mg/dL (74-99); Potassium 4.3 mmol/L (3.5-5.1); Sodium 140 mmol/L (137-145); Total Bilirubin 0.3 mg/dL (0.2-1.3); Total Protein 6.6 g/dL (6.3-8.2)
[2018-10-11 17:23] LABS: Glucose,Whole Blood 119 mg/dL (75-99)
[2018-10-11 20:29] LABS: Glucose,Whole Blood 154 mg/dL (75-99)
[2018-10-11] MEDS: ATORVASTATIN 10 MG TAB PO SCH (22:42)
--- NOTE | 2018-10-12 00:31 | P.PN ---
Subjective Progress Note Date: 10/11/18 38-year-old female who has a history of diabetes mellitus type 2, last hemoglobin A1c greater than 8, obesity and menorrhagia. Apparently the patient a week ago started developed some pain and discomfort to her inferior aspect of her right breast. She does have a history of prior yeast infections but this was different. It was more rounded swollen tender and had some erythema. She was seen and apparently placed on Bactrim. Despite this she did not have any significant improvement to the area. It became worse in that it was more swollen, more erythematous and more tender. Her blood sugars increased and consequently she was brought into hospital. With evidence of the abscess at marquise t site the infectious diseases consultation was requested. 10/11/2018 the patient is feeling better today. There's been some further spontaneous drainage from the right breast abscess. She's having no further fevers or chills. Overall feels somewhat better. Denies other acute changes Objective - Vital Signs Vital signs: Vital Signs Temp 98.2 F 10/11/18 14:10 Pulse 97 10/11/18 14:10 Resp 16 10/11/18 14:10 BP 140/82 10/11/18 14:10 Pulse Ox 98 10/11/18 14:10 Intake & Output 10/11/18 10/11/18 10/12/18 06:59 18:59 06:59 Intake Total 2550 Balance 2550 Intake: Oral 2550 Other: # Voids 2 4 - Exam 38-year-old female with obesity seems to be comfortable at this time HEENT: Anicteric conjunctiva are pink and moist nasal mucosa grossly intact without significant lesions, there is no thrush. Neck: The neck is supple without significant lymphadenopathy or thyromegaly. Lungs: Good bilateral air entry without significant crackles or wheezing. There is no significant bronchial sounds. There is no egophony or dullness. Heart: Regular rate and rhythm with an audible S1-S2, no S3 no S4. There is no significant murmur click or rub, PMI was nondisplaced. Abdomen: Obese, Positive bowel sounds soft and nontender without palpable masses or organomegaly. There was no guarding or rebound. Extremities: The upper extremities have excellent pulses they are symmetric, no significant petechiae or telangiectasia. No splinter hemorrhages were noted. The lower extremities are free from significant edema. The peripheral pulses were 2+ and symmetric. Neuro: Awake alert oriented to person place and time. There are no acute new gross focal sensory motor deficits. With the nurse present the right breast is evaluated. In the inferior aspect of the breast there is these 3 cm area of erythema it is indurated it is now much less tender. With minimal manipulation of the breast is large amount of purulent material easily drains out the opening, still somewhat malodorous in nature but improved from admission. The severe tenderness has markedly improved. There was no significant axillary lymphadenopathy, no other lymph nodes are noted - Labs CBC & Chem 7: 10/11/18 13:51 10/11/18 13:51 Labs: Abnormal Lab Results - Last 24 Hours (Table) 10/11/18 10/11/18 10/11/18 Range/Units 07:02 12:26 13:51 WBC 11.3 H (3.8-10.6) k/uL Creatinine (0.52-1.04) mg/dL Glucose (74-99) mg/dL POC Glucose (mg/dL) 129 H 104 H (75-99) mg/dL 10/11/18 10/11/18 10/11/18 Range/Units 13:51 17:21 20:27 WBC (3.8-10.6) k/uL Creatinine 0.50 L (0.52-1.04) mg/dL Glucose 156 H (74-99) mg/dL POC Glucose (mg/dL) 119 H 154 H (75-99) mg/dL Microbiology - Last 24 Hours (Table) 10/09/18 17:30 Anaerobic Culture - Preliminary Breast - Right 10/09/18 17:30 Gram Stain - Final Breast - Right Wound Culture - Final 10/09/18 14:44 Blood Culture - Preliminary Blood No Growth after 48 hours 10/09/18 14:45 Blood Culture - Preliminary Blood No Growth after 48 hours Laboratory Results WBC 11.3 k/uL (3.8-10.6) H 10/11/18 13:51 RBC 4.46 m/uL (3.80-5.40) 10/11/18 13:51 Hgb 12.2 gm/dL (11.4-16.0) 10/11/18 13:51 Hct 36.8 % (34.0-46.0) 10/11/18 13:51 MCV 82.6 fL (80.0-100.0) 10/11/18 13:51 MCH 27.4 pg (25.0-35.0) 10/11/18 13:51 MCHC 33.1 g/dL (31.0-37.0) 10/11/18 13:51 RDW 13.8 % (11.5-15.5) 10/11/18 13:51 Plt Count 312 k/uL (150-450) 10/11/18 13:51 Neutrophils % 68 % 10/11/18 13:51 Lymphocytes % 22 % 10/11/18 13:51 Monocytes % 5 % 10/11/18 13:51 Eosinophils % 3 % 10/11/18 13:51 Basophils % 0 % 10/11/18 13:51 Neutrophils # 7.7 k/uL (1.3-7.7) 10/11/18 13:51 Lymphocytes # 2.5 k/uL (1.0-4.8) 10/11/18 13:51 Monocytes # 0.5 k/uL (0-1.0) 10/11/18 13:51 Eosinophils # 0.3 k/uL (0-0.7) 10/11/18 13:51 Basophils # 0.1 k/uL (0-0.2) 10/11/18 13:51 Sodium 140 mmol/L (137-145) 10/11/18 13:51 Potassium 4.3 mmol/L (3.5-5.1) 10/11/18 13:51 Chloride 104 mmol/L (98-107) 10/11/18 13:51 Carbon Dioxide 25 mmol/L (22-30) 10/11/18 13:51 Anion Gap 11 mmol/L 10/11/18 13:51 BUN 9 mg/dL (7-17) 10/11/18 13:51 Creatinine 0.50 mg/dL (0.52-1.04) L 10/11/18 13:51 Est GFR (CKD-EPI)AfAm >90 (>60 ml/min/1.73 sqM) 10/11/18 13:51 Est GFR (CKD-EPI)NonAf >90 (>60 ml/min/1.73 sqM) 10/11/18 13:51 Glucose 156 mg/dL (74-99) H 10/11/18 13:51 POC Glucose (mg/dL) 154 mg/dL (75-99) H 10/11/18 20:27 POC Glu Time Study Technologist ID Leeann Chau 10/11/18 20:[address] Glu mg/dL 166 10/09/18 12:36 Hemoglobin A1c 7.4 % (4.0-6.0) H 10/09/18 12:36 Lactic Ac Sepsis Rflx Y 10/09/18 15:49 Plasma Lactic Acid Carlos 1.8 mmol/L (0.7-2.0) 10/09/18 19:53 Calcium 9.7 mg/dL (8.4-10.2) 10/11/18 13:51 Total Bilirubin 0.3 mg/dL (0.2-1.3) 10/11/18 13:51 AST 14 U/L (14-36) 10/11/18 13:51 ALT 26 U/L (9-52) 10/11/18 13:51 Alkaline Phosphatase 51 U/L (38-126) 10/11/18 13:51 Total Protein 6.6 g/dL (6.3-8.2) 10/11/18 13:51 Albumin 3.8 g/dL (3.5-5.0) 10/11/18 13:51 Vancomycin Trough 17.1 ug/mL 10/11/18 13:51 Microbiology 10/09/18 17:30 Breast - Right Anaerobic Culture - Preliminary 10/09/18 17:30 Breast - Right Gram Stain - Final 10/09/18 17:30 Breast - Right Wound Culture - Final 10/09/18 14:44 Blood Blood Culture - Preliminary No Growth after 48 hours 10/09/18 14:45 Blood Blood Culture - Preliminary No Growth after 48 hours Assessment and Plan (1) Abscess of right breast Narrative/Plan: 38-year-old female presents to Hospital with a history of pain and swelling to the right breast. Despite a 5 day course of antibiotic therapy with Bactrim and did not improved in counseling was brought into hospital for further intervention. Ultrasound reveals evidence of a fluid collection. With the nurse present a culture is obtained of the somewhat foul drainage that is being noted at that site. Antibiotic therapy with vancomycin has been started. We'll add and Unasyn for now given the somewhat putrid nature of the drainage. Does not appear to have a secondary yeast infection at this time. Improvement of her diabetes care will be very important in helping the treatment and preventing further skin lesions. Skin lesions are common in patients with uncontrolled diabetes. Tetanus vaccine will be updated Will provide multivitamin 10/11/2018 the patient is feeling better since admission. There still has been large amount of purulent drainage from the right breast. However appears to be much improved. Does not appear to need surgical incision and drainage at this time. Continue with dressing to absorb drainage. Antibiotic therapy with ampicillin sulbactam and vancomycin are being utilized until culture results are available. Hopefully the next day it'll be further improvement and transition to oral antibiotic therapy and local wound care hopefully with home care nurse can then be set up. Current Visit: Yes Status: Acute Code(s): N61.1 - ABSCESS OF THE BREAST AND NIPPLE SNOMED Code(s): 29052692 (2) Leukocytosis Current Visit: Yes Status: Acute Code(s): D72.829 - ELEVATED WHITE BLOOD CELL COUNT, UNSPECIFIED SNOMED Code(s): 492990322 (3) Diabetes mellitus type 2, uncontrolled Current Visit: Yes Status: Acute Code(s): E11.65 - TYPE 2 DIABETES MELLITUS WITH HYPERGLYCEMIA SNOMED Code(s): 198580343
[2018-10-12] MEDS: AMPICILLIN-SULBACTAM 3 GM in SODIUM CHLORIDE 0.9% 100 ML IVPB SCH ×4 (01:51→17:26)
[2018-10-12] MEDS: SODIUM CHLORIDE 0.9% 1,000 ML IV SCH ×3 (01:57→22:04)
[2018-10-12] MEDS: VANCOMYCIN 2,000 MG in SODIUM CHLORIDE 0.9% 500 ML 500 ML IVPB SCH ×3 (06:28→22:05)
[2018-10-12 07:30] LABS: Glucose,Whole Blood 142 mg/dL (75-99)
[2018-10-12] MEDS: INSULIN ASPART (NovoLOG) 100 UNIT/ML VIAL SQ SCH ×7 (08:15→22:04)
[2018-10-12] MEDS: INSULIN DETEMIR (LEVEMIR) 100 UNIT/ML SYR SQ SCH ×2 (08:15→22:04)
[2018-10-12] MEDS: traMADol 50 MG TAB PO PRN (09:27)
[2018-10-12] MEDS: PANTOPRAZOLE 40 MG TABLET PO SCH (09:28)
[2018-10-12] MEDS: metFORMIN 500 MG TAB PO SCH ×2 (09:28→17:38)
[2018-10-12] MEDS: LISINOPRIL-HCTZ 20-12.5 MG 1 EACH TAB PO SCH (10:09)
[2018-10-12] MEDS: LINAGLIPTIN 5 MG TABLET PO SCH (10:10)
[2018-10-12] MEDS: ENOXAPARIN 40 MG/0.4 ML SYRINGE SQ SCH (10:11)
[2018-10-12 10:49] LABS: Basophils % (A) 0 %; Eosinophils # (A) 0.2 k/uL (0-0.7); Eosinophils % (A) 3 %; HCT 37.4 % (34.0-46.0); HGB 12.4 gm/dL (11.4-16.0); Lymphocytes # (A) 2.2 k/uL (1.0-4.8); Lymphocytes % (A) 24 %; MCH 27.1 pg (25.0-35.0); MCHC 33.1 g/dL (31.0-37.0); MCV 81.9 fL (80.0-100.0); Monocytes # (A) 0.4 k/uL (0-1.0); Monocytes % (A) 4 %; Neutrophils # (A) 6.2 k/uL (1.3-7.7); Neutrophils % (A) 67 %; Platelet Count 295 k/uL (150-450); RBC 4.56 m/uL (3.80-5.40); RDW 13.8 % (11.5-15.5); WBC 9.3 k/uL (3.8-10.6)
[2018-10-12 11:05] LABS: ALT 25 U/L (9-52); AST 13 U/L (14-36); Alkaline Phosphatase 53 U/L (38-126); Anion Gap 10 mmol/L; Blood Urea Nitrogen 8 mg/dL (7-17); Calcium 9.9 mg/dL (8.4-10.2); Carbon Dioxide 27 mmol/L (22-30); Chloride 104 mmol/L (98-107); Glucose 221 mg/dL (74-99); Potassium 4.5 mmol/L (3.5-5.1); Sodium 141 mmol/L (137-145); Total Bilirubin 0.3 mg/dL (0.2-1.3); Total Protein 6.7 g/dL (6.3-8.2)
[2018-10-12 12:16] LABS: Glucose,Whole Blood 117 mg/dL (75-99)
--- NOTE | 2018-10-12 12:17 | P.PN ---
Subjective Progress Note Date: 10/12/18 This is a 38-year-old female with a known past medical history of diabetes mellitus type 2, hyperlipidemia, hypertension, asthma, morbid obesity and menorrhagia. Patient initially presented to Dr. Hinson's office with complaints of a right breast abscess 7 days. She had been starting on Bactrim for 5 days by visiting home physicians. She had no improvement in the right breast abscess. Therefore, Dr. Hinson directly admitted patient to the hospital for IV antibiotics and infectious disease consults. Under patient's breast in the 6 o'clock position there is a firm area about 1-2 cm in size. There is a small pimple-like area. No drainage. There is evidence of cellulitis changes it is warm and tender with palpation covering the underside of the large breast. Ultrasound of the breast as been ordered patient's been started on IV vancomycin and infectious disease has been consulted [place]. She is tachycardic with a heart rate of 125. EKG has been ordered and she's been started on IV fluids. Patient does report also having nausea no actual vomiting. She denies any fever or chills or sweats. Denies any bowel movement changes or urinary symptoms. Denies any chest pain or shortness of breath. 10/10/2018 patient seen by infectious disease. Unasyn was added. Infectious disease was able to drain some of the abscess. Cultures were obtained. White count has normalized down from 13.2-10.5. Lactic normalized at 1.8. Patient's pain is controlled. Denies any nausea or vomiting. No bowel movement yesterday. She did receive a tetanus shot On 10/11/2018 patient is alert and oriented 3. Patient is currently on Unasyn and sacral for IV antibiotics. Patient denies chest pain or shortness breath. Patient denies nausea vomiting or diarrhea. Patient denies any urinary burning or frequency. Awaiting infectious disease recommendations for possible drainage and possible IV antibiotics upon discharge 10/12/2018 patient's right breast abscess is showing improvement. Decrease in redness. Decrease in tenderness. Awaiting cultures to finalize and further IV antibiotic recommendations. Patient does report having bowel movements. Denies any chest pain or shortness breath. Denies any nausea or vomiting. Denies any burning with urination. Objective - Vital Signs Vital signs: Vital Signs Temp 98.3 F 10/12/18 05:00 Pulse 89 10/12/18 05:00 Resp 16 10/12/18 05:00 BP 114/63 10/12/18 05:00 Pulse Ox 94 L 10/12/18 05:00 Intake & Output 10/11/18 10/12/18 10/12/18 18:59 06:59 18:59 Intake Total 2550 1300 Balance 2550 1300 Intake: Intake, IV Titration 1300 Amount Sodium Chloride 0.9% 1, 800 000 ml @ 100 mls/hr IV . Q10H ANNALEE Rx#:[id number] Vancomycin 2,000 mg In 500 Sodium Chloride 0.9% 500 ml 500 ml @ 167 mls/hr IVPB Q8H ANNALEE Rx#: [id number] Oral 2550 Other: # Voids 4 3 - Exam Head normocephalic Neck supple Lungs clear to auscultation bilaterally no wheezing or crackles Heart regular rate and rhythm S1-S2, no rub or gallop Abdomen is soft nontender nondistended positive bowel sounds no hepatosplenomegaly Extremities no edema Neuro alert and orientated to 3 Breast: Right breast 6 o'clock position about 01-2 cm abscess with palpable point that looks like in a large pimple which is now draining pus material. Tender with palpation. Under side of breast is red and warm. Decrease in redness - Labs CBC & Chem 7: 10/12/18 10:17 10/12/18 10:17 Labs: Abnormal Lab Results - Last 24 Hours (Table) 10/11/18 10/11/18 10/11/18 Range/Units 12:26 13:51 13:51 WBC 11.3 H (3.8-10.6) k/uL Creatinine 0.50 L (0.52-1.04) mg/dL Glucose 156 H (74-99) mg/dL POC Glucose (mg/dL) 104 H (75-99) mg/dL AST (14-36) U/L 10/11/18 10/11/18 10/12/18 Range/Units 17:21 20:27 07:25 WBC (3.8-10.6) k/uL Creatinine (0.52-1.04) mg/dL Glucose (74-99) mg/dL POC Glucose (mg/dL) 119 H 154 H 142 H (75-99) mg/dL AST (14-36) U/L 10/12/18 Range/Units 10:17 WBC (3.8-10.6) k/uL Creatinine 0.49 L (0.52-1.04) mg/dL Glucose 221 H (74-99) mg/dL POC Glucose (mg/dL) (75-99) mg/dL AST 13 L (14-36) U/L Microbiology - Last 24 Hours (Table) 10/09/18 17:30 Anaerobic Culture - Preliminary Breast - Right 10/09/18 17:30 Gram Stain - Final Breast - Right Wound Culture - Final 10/09/18 14:44 Blood Culture - Preliminary Blood No Growth after 48 hours 10/09/18 14:45 Blood Culture - Preliminary Blood No Growth after 48 hours Assessment and Plan Assessment: 1. Right breast abscess: Failed outpatient antibiotics with Bactrim. Seen by infectious disease. Antibiotics were adjusted. Currently on Unasyn and vancomycin. White count and lactic acid have normalized. Awaiting cultures finalize 2. Sepsis present on admission secondary to right breast abscess. Patient was tachycardic with elevated white count and lactic acid 3. Diabetes mellitus type 2: Resume patient's home insulin Lantus and scheduled NovoLog with meals. Add sliding scale coverage. Resume patient's Tradjenta and metformin. A1c 7.4 4. Morbid obesity BMI 51.3 kg 5. Essential hypertension: Resume patient's blood pressure medication 6. Hyperlipidemia resume Zocor 7. History of mild intermittent asthma. Stable GI prophylaxis Protonix and DVT prophylaxis Lovenox Plan Anticipate discharge possibly tomorrow Awaiting cultures to finalize and infectious disease antibiotic recommendations for discharge I performed an examination of the patient and discussed their management with the physician C.O.D. Biller. I have reviewed the Physician C.O.D. Biller's notes and agree with the documented findings and plan of care
[2018-10-12] MEDS: CHOLECALCIFEROL 1,000 UNIT TAB PO SCH (12:40)
[2018-10-12] MEDS: MULTIVITAMINS, THERA 1 EACH TAB PO SCH (13:05)
[2018-10-12] MEDS: CYANOCOBALAMIN 500 MCG TAB PO SCH (13:05)
[2018-10-12 17:25] LABS: Glucose,Whole Blood 104 mg/dL (75-99)
[2018-10-12 21:23] LABS: Glucose,Whole Blood 134 mg/dL (75-99)
[2018-10-12] MEDS: ATORVASTATIN 10 MG TAB PO SCH (22:03)
[2018-10-13] MEDS: AMPICILLIN-SULBACTAM 3 GM in SODIUM CHLORIDE 0.9% 100 ML IVPB SCH ×3 (01:00→11:49)
[2018-10-13] MEDS: VANCOMYCIN 2,000 MG in SODIUM CHLORIDE 0.9% 500 ML 500 ML IVPB SCH (06:31)
[2018-10-13 07:37] LABS: Glucose,Whole Blood 138 mg/dL (75-99)
[2018-10-13] MEDS: metFORMIN 500 MG TAB PO SCH (08:52)
[2018-10-13] MEDS: INSULIN ASPART (NovoLOG) 100 UNIT/ML VIAL SQ SCH ×4 (08:52→13:30)
[2018-10-13] MEDS: PANTOPRAZOLE 40 MG TABLET PO SCH ×2 (08:52→08:53)
[2018-10-13] MEDS: SODIUM CHLORIDE 0.9% 1,000 ML IV SCH (08:53)
[2018-10-13] MEDS: INSULIN DETEMIR (LEVEMIR) 100 UNIT/ML SYR SQ SCH (08:57)
[2018-10-13 09:16] LABS: Basophils % (A) 0 %; Eosinophils # (A) 0.3 k/uL (0-0.7); Eosinophils % (A) 3 %; HCT 36.8 % (34.0-46.0); Lymphocytes # (A) 2.6 k/uL (1.0-4.8); Lymphocytes % (A) 25 %; MCH 26.8 pg (25.0-35.0); MCHC 32.7 g/dL (31.0-37.0); MCV 82.1 fL (80.0-100.0); Mean Platelet Volume 8.9; Monocytes # (A) 0.5 k/uL (0-1.0); Monocytes % (A) 5 %; Neutrophils # (A) 6.9 k/uL (1.3-7.7); Neutrophils % (A) 66 %; Platelet Count 283 k/uL (150-450); RBC 4.48 m/uL (3.80-5.40); RDW 14.5 % (11.5-15.5); WBC 10.5 k/uL (3.8-10.6)
[2018-10-13 09:26] LABS: ALT 26 U/L (9-52); AST 13 U/L (14-36); Albumin 3.7 g/dL (3.5-5.0); Alkaline Phosphatase 60 U/L (38-126); Anion Gap 9 mmol/L; Blood Urea Nitrogen 9 mg/dL (7-17); Calcium 9.5 mg/dL (8.4-10.2); Carbon Dioxide 26 mmol/L (22-30); Chloride 104 mmol/L (98-107); Glucose 217 mg/dL (74-99); Potassium 4.3 mmol/L (3.5-5.1); Sodium 139 mmol/L (137-145); Total Bilirubin 0.2 mg/dL (0.2-1.3); Total Protein 6.3 g/dL (6.3-8.2)
[2018-10-13] MEDS: LISINOPRIL-HCTZ 20-12.5 MG 1 EACH TAB PO SCH (10:13)
[2018-10-13] MEDS: MULTIVITAMINS, THERA 1 EACH TAB PO SCH (10:13)
[2018-10-13] MEDS: LINAGLIPTIN 5 MG TABLET PO SCH (10:14)
[2018-10-13] MEDS: CHOLECALCIFEROL 1,000 UNIT TAB PO SCH (10:14)
[2018-10-13] MEDS: ENOXAPARIN 40 MG/0.4 ML SYRINGE SQ SCH (10:45)
[2018-10-13] MEDS: CYANOCOBALAMIN 500 MCG TAB PO SCH (11:49)
[2018-10-13 11:52] LABS: Glucose,Whole Blood 111 mg/dL (75-99)
--- NOTE | 2018-10-13 12:28 | P.DS ---
Providers Date of admission: 10/09/18 11:03 Expected date of discharge: 10/13/18 Attending physician: Manju Hinson Consults: 10/09/18 12:28 Consult Physician Routine Consulting Provider: Isma Chowdhury Consult Reason/Comments: breast abscess Do you want consulting provider notified?: Yes Placement Type Exists?: Yes Primary care physician: Manju Hinson Hospital Course: Discharge diagnosis 1. Right breast abscess: Failed outpatient antibiotics with Bactrim. Infectious diseases recommending Augmentin for 1 week at discharge 2. Sepsis present on admission secondary to right breast abscess. Patient was tachycardic with elevated white count and lactic acid 3. Diabetes mellitus type 2: Resume patient's home insulin Lantus and scheduled NovoLog with meals. Add sliding scale coverage. Resume patient's Tradjenta and metformin. A1c 7.4 4. Morbid obesity BMI 51.3 kg 5. Essential hypertension: Resume patient's blood pressure medication 6. Hyperlipidemia resume Zocor 7. History of mild intermittent asthma. Stable Hospital course This is a 38-year-old female with a known past medical history of diabetes mellitus type 2, hyperlipidemia, hypertension, asthma, morbid obesity and menorrhagia. Patient initially presented to Dr. Hinson's office with complaints of a right breast abscess 7 days. She had been starting on Bactrim for 5 days by visiting home physicians. She had no improvement in the right breast abscess. Therefore, Dr. Hinson directly admitted patient to the hospital for IV antibiotics and infectious disease consults. Under patient's breast in the 6 o'clock position there is a firm area about 1-2 cm in size. There is a small pimple-like area. No drainage. There is evidence of cellulitis changes it is warm and tender with palpation covering the underside of the large breast. Ultrasound of the breast as been ordered patient's been started on IV vancomycin and infectious disease has been consulted [place]. She is tachycardic with a heart rate of 125. EKG has been ordered and she's been started on IV fluids. Patient does report also having nausea no actual vomiting. She denies any fever or chills or sweats. Denies any bowel movement changes or urinary symptoms. Denies any chest pain or shortness of breath. 10/10/2018 patient seen by infectious disease. Unasyn was added. Infectious disease was able to drain some of the abscess. Cultures were obtained. White count has normalized down from 13.2-10.5. Lactic normalized at 1.8. Patient's pain is controlled. Denies any nausea or vomiting. No bowel movement yest erday. She did receive a tetanus shot On 10/11/2018 patient is alert and oriented 3. Patient is currently on Unasyn and sacral for IV antibiotics. Patient denies chest pain or shortness breath. Patient denies nausea vomiting or diarrhea. Patient denies any urinary burning or frequency. Awaiting infectious disease recommendations for possible drainage and possible IV antibiotics upon discharge 10/12/2018 patient's right breast abscess is showing improvement. Decrease in redness. Decrease in tenderness. Awaiting cultures to finalize and further IV antibiotic recommendations. Patient does report having bowel movements. Denies any chest pain or shortness breath. Denies any nausea or vomiting. Denies any burning with urination. 10/13/2018 patient is medically stable for discharge. Patient seen in evaluated by infectious disease during this admission. Infectious disease had place patient on IV Unasyn and vancomycin. Blood cultures remain negative. Wound culture with Gram stain was negative. Anaerobic culture is preliminary but no anaerobes are isolated. Patient is stable for discharge. She'll be discharged home on Augmentin for 7 more days. Follow up with Dr. Hinson in the office in one week. Patient's blood sugars are stable. Recommended that she records blood sugars at home and brings him into the office to make further adjustments as needed in her diabetes medications. She has been seen by the diabetic educator. She's been educated on following diabetic diet. Patient Mycostatin for discharge. Please refer to chart for any further details. Patient Condition at Discharge: Stable Plan - Discharge Summary New Discharge Prescriptions: New Amoxic-Pot Clav 875-125Mg [Augmentin 875-125] 1 tab PO Q12HR #14 tablet Multivitamins, Thera [Multivitamin (formulary)] 1 each PO DAILY@1200 #30 tab Continue metFORMIN HCL [Glucophage] 1,000 mg PO BID Omeprazole [PriLOSEC] 20 mg PO AC-BRKFST Simvastatin [Zocor] 20 mg PO HS #30 tab sitaGLIPtin [Januvia] 100 mg PO DAILY Cyanocobalamin (Vitamin B-12) [Vitamin B-12] 1,000 mcg PO DAILY Cholecalciferol [Vitamin D3] 5,000 unit PO DAILY medroxyPROGESTERone [Depo-Provera] 150 mg IM Q84D #1 vial Lisinopril-Hctz 20-12.5 mg [Zestoretic 20-12.5] 1 tab PO DAILY Etjeuxoe-Ekazpqmgq-Bz Otic [Cortisporin Otic Soln] 3 - 5 drop BOTH EARS DAILY PRN PRN Reason: PSORIASIS FLARE Insulin Glargine [Lantus] 50 unit SQ BID Insulin Aspart [NovoLOG Flexpen] 15 unit SQ AC-TID Insulin Glargine,Hum.rec.anlog [Lantus Solostar] 50 unit SQ BID Discontinued Sulfamethox-Tmp 800-160Mg [Bactrim DS 800-160 mg] 1 tab PO BID Discharge Medication List Omeprazole [PriLOSEC] 20 mg PO AC-BRKFST 12/17/14 [History] metFORMIN HCL [Glucophage] 1,000 mg PO BID 12/17/14 [History] Simvastatin [Zocor] 20 mg PO HS #30 tab 04/20/15 [Rx] Cholecalciferol [Vitamin D3] 5,000 unit PO DAILY 06/21/17 [History] Cyanocobalamin (Vitamin B-12) [Vitamin B-12] 1,000 mcg PO DAILY 06/21/17 [History] sitaGLIPtin [Januvia] 100 mg PO DAILY 06/21/17 [History] medroxyPROGESTERone [Depo-Provera] 150 mg IM Q84D #1 vial 06/27/18 [Rx] Insulin Aspart [NovoLOG Flexpen] 15 unit SQ AC-TID 10/09/18 [History] Insulin Glargine [Lantus] 50 unit SQ BID 10/09/18 [History] Insulin Glargine,Hum.rec.anlog [Lantus Solostar] 50 unit SQ BID 10/09/18 [History] Lisinopril-Hctz 20-12.5 mg [Zestoretic 20-12.5] 1 tab PO DAILY 10/09/18 [History] Dksarwqd-Qplrzndem-Lq Otic [Cortisporin Otic Soln] 3 - 5 drop BOTH EARS DAILY PRN 10/09/18 [History] Amoxic-Pot Clav 875-125Mg [Augmentin 875-125] 1 tab PO Q12HR #14 tablet 10/12/18 [Rx] Multivitamins, Thera [Multivitamin (formulary)] 1 each PO DAILY@1200 #30 tab 10/13/18 [Rx] Follow up Appointment(s)/Referral(s): [facility], [NON-STAFF] - Manju Hinson MD [Primary Care Provider] - 1 Week Activity/Diet/Wound Care/Special Instructions: Dry gauze to wound daily and as needed for drainage. Diet: diabetic, cardiac Activity: as tolerated Discharge Disposition: HOME WITH HOME HEALTH SERVICES
[2018-10-13 13:27] VITALS: BP 130/70; PULSE 90; RESP 18; TEMP 97.6
[2018-10-14] MEDS ORDERED: VANCOMYCIN TROUGH DUE 1 EACH MISC MISCELLANE ONE (05:00)
== END 2018-10-13 14:56 | disposition home health service (06) | DRG 872 ==
LOC: 4MS4W 11:03
PROVIDERS: ADMIT Internal Medicine; ATTEND Internal Medicine
PROC: 05HF33Z Insertion of Infusion Device into Left Cephalic Vein, Percutaneous Approach (ICD-10-PCS; principal; 2018-10-13 09:45)
DX: A41.9 Sepsis, unspecified organism (principal); Z68.43 Body mass index [BMI] 50.0-59.9, adult; N61.1 Abscess of the breast and nipple; E66.01 Morbid (severe) obesity due to excess calories; E11.65 Type 2 diabetes mellitus with hyperglycemia; I10 Essential (primary) hypertension; K21.9 Gastro-esophageal reflux disease without esophagitis; J45.20 Mild intermittent asthma, uncomplicated; E78.5 Hyperlipidemia, unspecified; N92.0 Excessive and frequent menstruation with regular cycle; Z79.4 Long term (current) use of insulin; Z79.899 Other long term (current) drug therapy; Z79.3 Long term (current) use of hormonal contraceptives; Z88.6 Allergy status to analgesic agent; Z88.1 Allergy status to other antibiotic agents; Z82.62 Family history of osteoporosis; Z87.11 Personal history of peptic ulcer disease; Z87.891 Personal history of nicotine dependence; Z80.49 Family history of malignant neoplasm of other genital organs; Z82.49 Family history of ischemic heart disease and other diseases of the circulatory system
CPT/HCPCS: 36410; 76937; 80053; 80202; 83036; 83605; 85025; 87040; 87070; 87075; 87205; 90715; 93005

== ENCOUNTER → 2019-05-16 | Outpatient (CLI) | payer MEDICARE, OTHER ==
--- NOTE | 2019-05-16 10:05 | MM ---
Reason for exam: clinical finding. Last mammogram was performed 11 months ago. History: Taking hormonal contraceptives for 6 years 3 months. Physical Findings: Nurse did not find any significant physical abnormalities on exam. MG 3D Diag Mammo W/Cad RAVEN Bilateral CC, MLO, and XCCL view(s) were taken. Prior study comparison: June 27, 2018, bilateral MG 3d screening mammo w/cad. March 18, 2017, bilateral MG 3d screening mammo w/cad. There are scattered fibroglandular densities. No suspicious abnormality. These results were verbally communicated with the patient and result sheet given to the patient on 05/16/19. ASSESSMENT: Negative, BI-RAD 1 RECOMMENDATION: Routine screening mammogram of both breasts in 1 year. Manage patient on a clinical basis. Dermatology consult recommended.
--- NOTE | 2019-05-16 10:06 | USB ---
Reason for exam: clinical finding. History: Taking hormonal contraceptives for 6 years 3 months. US Breast Limited LT Left limited breast ultrasound including focal area of concern, retroareolar and axilla demonstrates no cystic or solid lesion seen. No suspicious sonographic finding. These results were verbally communicated with the patient and result sheet given to the patient on 05/16/19. ASSESSMENT: Negative, BI-RAD 1 RECOMMENDATION: Routine screening mammogram of both breasts in 1 year. Manage patient on a clinical basis. Dermatology consult recommended.
== END | disposition home or self-care (01) ==
LOC: RADMAMWWP 07:00
PROVIDERS: ATTEND Internal Medicine
DX: N63.20 Unspecified lump in the left breast, unspecified quadrant (principal)
CPT/HCPCS: 77066; 76642; G0279; 77062

== ENCOUNTER → 2019-06-26 | Outpatient (CLI) | payer MEDICARE, OTHER ==
[2019-06-26 13:10] VITALS: BP 132/90; PULSE 103; RESP 20; TEMP 98.3
--- NOTE | 2019-06-26 13:55 | P.HPOB ---
History of Present Illness H&P Date: 06/26/19 Chief Complaint: the patient is here for her routine gynecologic exam. This is a 39-year-old G0 with an LMP of approximately 2011. The patient has been amenorrheic on Depo-Provera since approximately 2011. She was started on Depo-Provera because of her history of severe hypermenorrhea and prolonged menses. The patient would like to continue on Depo-Provera to control her hypermenorrhea. She has not been sexually active during the past year. She is without gynecologic complaints. Review of Systems The patient has gained 8 pounds over the last year. She denies respiratory, cardiac, or G.I. problems. Past Medical History Past Medical History: Asthma, Diabetes Mellitus, GERD/Reflux, Hyperlipidemia, Hypertension Additional Past Medical History / Comment(s): type 2 diabetes requiring insulin. Leukocytosis, peptic ulcer disease in the past, and obesity. 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 Long history of hypermenorrhea improved with Depo- Provera. History of Any Multi-Drug Resistant Organisms: None Reported Additional Past Surgical History / Comment(s): [place] teeth removed. Colonoscopy in her 20s. Past Psychological History: Anxiety, Depression, PTSD Additional Psychological History / Comment(s): Single. Lives independently. No animal exposures. Does not work outside of the home Smoking Status: Former smoker Past Alcohol Use History: None Reported Additional Past Alcohol Use History / Comment(s): quit smoking in 2014. Past Drug Use History: None Reported Additional History: she is single and is not seeing anybody at this time. She is disabled. - Past Family History Mother Family Medical History: No Reported History Additional Family Medical History / Comment(s): Maternal great aunt had either ovarian or uterine cancer. Father Additional Family Medical History / Comment(s): Grandfather had heart disease. Father had osteoporosis. Medications and Allergies Home Medications Medication Instructions Recorded Confirmed Type Omeprazole [PriLOSEC] 20 mg PO AC-BRKFST 12/17/14 06/26/19 History Simvastatin [Zocor] 20 mg PO HS #30 tab 04/20/15 06/26/19 Rx Cholecalciferol [Vitamin D3 (25 5,000 unit PO DAILY 06/21/17 06/26/19 History Mcg = 1000 Iu)] Cyanocobalamin (Vitamin B-12) 1,000 mcg PO DAILY 06/21/17 06/26/19 History [Vitamin B-12] sitaGLIPtin [Januvia] 100 mg PO DAILY 06/21/17 06/26/19 History medroxyPROGESTERone [Depo-Provera] 150 mg IM Q84D #1 vial 06/27/18 06/26/19 Rx Insulin Aspart [NovoLOG Flexpen] 15 unit SQ AC-TID 10/09/18 06/26/19 History Insulin Glargine [Lantus] 50 unit SQ BID 10/09/18 06/26/19 History Insulin Glargine,Hum.rec.anlog 50 unit SQ BID 10/09/18 06/26/19 History [Lantus Solostar] Lisinopril-Hctz 20-12.5 mg 1 tab PO DAILY 10/09/18 06/26/19 History [Zestoretic 20-12.5] Auuolrct-Xwwkvzkxa-Yl Otic 3 - 5 drop BOTH EARS DAILY PRN 10/09/18 06/26/19 History [Cortisporin Otic Soln] Multivitamins, Thera [Multivitamin 1 each PO DAILY@1200 #30 tab 10/13/18 06/26/19 Rx (formulary)] Allergies Allergy/AdvReac Type Severity Reaction Status Date / Time cephalexin monohydrate Allergy Rash/Hives Verified 06/26/19 13:10 [From Keflex] aspirin AdvReac PATIENT Verified 06/26/19 13:10 HAS ULCER Exam Vital Signs Temp Pulse Resp BP Pulse Ox 06/26/19 13:02 98.3 F 103 H 20 132/90 96 Intake and Output 06/25/19 06/26/19 06/26/19 22:59 06:59 14:59 Other: Weight 139.706 kg height 5 feet 3 inches, weight 308 pounds, BMI 54.6. This is a well-developed well-nourished obese white female who is alert and oriented times 3 in no acute distress. HEENT: Within normal limits. NECK: Supple without mass or thyromegaly. CHEST AND LUNGS: Clear to auscultation. HEART: Regular rate and rhythm. BREASTS: Are without mass or discharge. AXILLARY EXAM: Negative for adenopathy. BACK: Negative for CVA tenderness. ABDOMEN: Soft, obese, nontender, without palpable masses. PELVIC EXAM: Normal external genitalia. Cervix and vagina appear normal. There is no unusual discharge. There is no evidence of prolapse. The uterus is midposition, nongravid size and nontender. There are no palpable adnexal masses or tenderness.Bimanual examination is somewhat limited secondary to her size. RECTAL EXAM: rectovaginal exam is negative for mass or tenderness and is negative for occult blood. EXTREMITIES: Nontender. IMPRESSION: 1. 39-year-old female who is amenorrheic on Depo-Provera because of her history of severe hypermenorrhea. 2. unremarkable gynecologic exam, but is limited secondary to her size. 3. Obesity. 4. Multiple medical problems. PLAN: 1. Pap smear was deferred since she had a normal one on 07-28. 2. Self breast awareness was discussed with the patient. 3. the patient had a benign mammogram on 05/16/2019. She will repeat this in 1 year. 4. we had a long discussion regarding menstrual periods and Depo-Provera use. We discussed pros and cons with Depo-Provera and other options. She understands that prolonged use with Depo-Provera can lead to decreased bone strength. We discussed other options including the Mirena IUD, Nexplanon hormonal implant, and hysterectomy. We have discussed pros and cons with these options and she would like to continue on using Depo-Provera at this time. The electronic prescription will be sent to [facility] for the upcoming year. She will continue to have her injections done at her primary care doctor's office. 5. Osteoporosis prevention was discussed. I have stressed the importance of adequate calcium, vitamin D and regular exercise. Recommended amounts of calcium and vitamin D were also discussed. 6. Weight control was discussed. I have stressed the importance of good nutrition and exercise. 7.STD prevention was discussed. I have stressed the importance of limiting sexual partners and condom use if she is sexually active. 8. She was advised to return in one year for her annual well woman exam.
== END | disposition home or self-care (01) ==
LOC: WWCWWP 12:53
PROVIDERS: ATTEND Obstetrics & Gynecology
DX: Z53.9 Procedure and treatment not carried out, unspecified reason (principal)

== ENCOUNTER → 2020-07-01 | Outpatient (CLI) | payer MEDICARE ==
[2020-07-01 09:39] VITALS: BP 131/84; PULSE 91; RESP 20; TEMP 98.1
--- NOTE | 2020-07-01 10:33 | P.HPOB ---
History of Present Illness H&P Date: 07/01/20 Chief Complaint: The patient is here for her routine gynecologic exam and ma mmogram. This is a 40-year-old G0 with an LMP of approximately 2011. The patient continues to use Depo-Provera because of her history of severe hypermenorrhea, prolonged menses and PMDD. Her Depo-Provera injections are given at her primary care physician's office. She is without gynecologic complaints. Review of Systems The patient has lost 12 pounds over the last year. She denies respiratory, cardiac, or G.I. problems. Past Medical History Past Medical History: Asthma, Diabetes Mellitus, GERD/Reflux, Hyperlipidemia, Hypertension Additional Past Medical History / Comment(s): type 2 diabetes requiring insulin. Leukocytosis, peptic ulcer disease in the past, and obesity. 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 Long history of hypermenorrhea, dysmenorrhea and PMDD improved with Depo-Provera. History of Any Multi-Drug Resistant Organisms: None Reported Additional Past Surgical History / Comment(s): [place] teeth removed. Colonoscopy in her 20s. Past Psychological History: Anxiety, Depression, PTSD Additional Psychological History / Comment(s): History of PMDD. Lives independently. No animal exposures. Does not work outside of the home Smoking Status: Former smoker Past Alcohol Use History: None Reported Additional Past Alcohol Use History / Comment(s): quit smoking in 2014. Past Drug Use History: None Reported Additional History: She is single and is not seeing anybody at this time. She is disabled. - Past Family History Mother Family Medical History: No Reported History Additional Family Medical History / Comment(s): Maternal great aunt had either ovarian or uterine cancer. Father Additional Family Medical History / Comment(s): Grandfather had heart disease. Father had osteoporosis. Medications and Allergies Home Medications Medication Instructions Recorded Confirmed Type Omeprazole [PriLOSEC] 20 mg PO AC-BRKFST 12/17/14 07/01/20 History Simvastatin [Zocor] 20 mg PO HS #30 tab 04/20/15 07/01/20 Rx Cholecalciferol [Vitamin D3 (25 5,000 unit PO DAILY 06/21/17 07/01/20 History Mcg = 1000 Iu)] Cyanocobalamin (Vitamin B-12) 1,000 mcg PO DAILY 06/21/17 07/01/20 History [Vitamin B-12] Insulin Aspart [NovoLOG Flexpen] 15 unit SQ AC-TID 10/09/18 07/01/20 History Insulin Glargine,Hum.rec.anlog 50 unit SQ BID 10/09/18 07/01/20 History [Lantus Solostar] Lisinopril-Hctz 20-12.5 mg 1 tab PO DAILY 10/09/18 07/01/20 History [Zestoretic 20-12.5] Ljhuqcbn-Jydhtxcuk-Xl Otic 3 - 5 drop BOTH EARS DAILY PRN 10/09/18 07/01/20 History [Cortisporin Otic Soln] Multivitamins, Thera [Multivitamin 1 each PO DAILY@1200 #30 tab 10/13/18 07/01/20 Rx (formulary)] Cetirizine HCl 10 mg PO DAILY PRN 07/01/20 07/01/20 History Dulaglutide [Trulicity] 0.75 mg SQ WEEKLY 07/01/20 07/01/20 History Triamcinolone Acetonide 1 applic TOPICAL DAILY PRN 07/01/20 07/01/20 History [Triamcinolone Acetonide 0.025%] medroxyPROGESTERone [Depo-Provera] 150 mg IM Q84D #1 vial 07/01/20 Rx Allergies Allergy/AdvReac Type Severity Reaction Status Date / Time cephalexin monohydrate Allergy Rash/Hives Verified 07/01/20 09:38 [From Keflex] aspirin AdvReac PATIENT Verified 07/01/20 09:38 HAS ULCER Exam Vital Signs Temp Pulse Resp BP Pulse Ox 07/01/20 09:35 98.1 F 91 20 131/84 97 Intake and Output 06/30/20 07/01/20 07/01/20 22:59 06:59 14:59 Other: Weight 134.263 kg Height 5 feet 3 inches, weight 296 pounds, BMI 52.4. This is a well-developed well-nourished obese white female who is alert and oriented times 3 in no acute distress. HEENT: Within normal limits. NECK: Supple without mass or thyromegaly. CHEST AND LUNGS: Clear to auscultation. HEART: Regular rate and rhythm. BREASTS: Are without mass or discharge. AXILLARY EXAM: Negative for adenopathy. BACK: Negative for CVA tenderness. ABDOMEN: Soft, obese, nontender, without palpable masses. PELVIC EXAM: Normal external genitalia. Cervix and vagina appear normal. There is no unusual discharge. There is no evidence of prolapse. The uterus is midposition, nongravid size and nontender. There are no palpable adnexal masses or tenderness. Bimanual examination is somewhat limited secondary to her size. RECTAL EXAM: Rectovaginal exam is negative for mass or tenderness and is negative for occult blood. EXTREMITIES: Nontender. IMPRESSION: 1. 40-year-old female with history of hypermenorrhea, dysmenorrhea, and PMDD improved with Depo-Provera injections which results in amenorrhea. 2. Obesity. 3. Multiple medical problems. PLAN: 1. Pap smear cotest was performed. 2. Self breast awareness was discussed with the patient. 3. Screening mammogram will be done today. 4. Osteoporosis prevention was discussed. I have stressed the importance of adequate calcium, vitamin D and regular exercise. Recommended amounts of calc ium and vitamin D were also discussed. I have stressed the importance of doing these things especially since she has been on long-term Depo-Provera for several years. We again have had a long discussion followed Depo-Provera can lead to significant bone strength loss. I have again recommended that she consider the alternatives. We have discussed alternatives such as control pills, Nexplanon implant, endometrial ablation and hysterectomy. She is not interested in any surgical procedures for this at this time. She would like to continue on with Depo-Provera at this time. She will consider having a trial off of Depo- Provera to see if she continues to have issues with her menstrual cycles. The electronic prescription was sent to [facility] for the upcoming year. 5. She was advised to return in one year for her annual well woman exam.
--- NOTE | 2020-07-02 08:31 | MM ---
Reason for exam: screening (asymptomatic). Last mammogram was performed 1 year and 2 months ago. History: Taking hormonal contraceptives for 6 years 3 months. Physical Findings: A clinical breast exam by your physician is recommended on an annual basis and results should be correlated with mammographic findings. MG Screening Mammo w CAD Bilateral CC and MLO view(s) were taken. Prior study comparison: May 16, 2019, bilateral MG 3d diag mammo w/cad [facility]. June 27, 2018, bilateral MG 3d screening mammo w/cad. The breast tissue is almost entirely fat. No significant changes when compared with prior studies. ASSESSMENT: Benign, BI-RAD 2 RECOMMENDATION: Routine screening mammogram of both breasts in 1 year.
== END | disposition home or self-care (01) ==
LOC: WWCWWP 09:06
PROVIDERS: ATTEND Obstetrics & Gynecology
DX: Z12.31 Encounter for screening mammogram for malignant neoplasm of breast (principal)
CPT/HCPCS: 77067